=== PATIENT | female | born 1970 | race Caucasian/White ===

== ENCOUNTER 2021-08-14 15:03 | Inpatient (IN) | payer OTHER ==
[~2021-08-14] VITALS: Ht 165.1 cm; Wt 63.5 kg
[~2021-08-14 15:03] MED LIST: ADALAT CC60 MG PO; LASIX20 MG PO; LIPITOR20 MG PO; MOTRIN PO; PRILOSEC OTC20 MG PO; TOPROL XL50 M1 PO; TRADJENTA5 MG PO
[2021-08-16] MEDS ORDERED: IBUPROFEN800 MG PO (07:52)
== END 2021-08-20 14:41 | disposition home or self-care (01) | DRG 330 ==
LOC: O/R 08-16 05:50 → SURG 08-16 05:50 → SURH 08-16 07:00 → CIR.AMB 08-16 10:18 → EDSTATUS 08-16 11:02 → SURH 08-16 11:03 → SURG 08-16 13:37
PROVIDERS: ADMIT Colon & Rectal Surgery; ATTEND Colon & Rectal Surgery
PROC: 0DBP0ZZ Excision of Rectum, Open Approach (ICD-10-PCS; 2021-08-16)
PROC: 0DBU0ZZ Excision of Omentum, Open Approach (ICD-10-PCS; 2021-08-16)
PROC: 0DJD8ZZ Inspection of Lower Intestinal Tract, Via Natural or Artificial Opening Endoscopic (ICD-10-PCS; 2021-08-16)
PROC: 4A1BXSH Monitoring of Gastrointestinal Vascular Perfusion using Indocyanine Green Dye, External Approach (ICD-10-PCS; 2021-08-16)
PROC: 0DTN0ZZ Resection of Sigmoid Colon, Open Approach (ICD-10-PCS; principal; 2021-08-16 07:00)
DX: K57.32 Diverticulitis of large intestine without perforation or abscess without bleeding (principal); K59.39 Other megacolon; K56.51 Intestinal adhesions [bands], with partial obstruction; K56.690 Other partial intestinal obstruction; Z53.31 Laparoscopic surgical procedure converted to open procedure; Z20.822 Contact with and (suspected) exposure to COVID-19

== ENCOUNTER → 2022-10-15 | Day surgery (SDC) | payer OTHER ==
[~2022-10-15] MED LIST changes: +IBUPROFEN800 MG PO
== END | disposition home or self-care (01) ==
LOC: ADM 10-10 13:45 → AMB-ENDOS 07:46
PROVIDERS: ATTEND Colon & Rectal Surgery
DX: K57.32 Diverticulitis of large intestine without perforation or abscess without bleeding (principal); K57.30 Diverticulosis of large intestine without perforation or abscess without bleeding; K64.8 Other hemorrhoids; Z20.822 Contact with and (suspected) exposure to COVID-19

== ENCOUNTER 2022-10-30 05:53 | Day surgery (SDC) | payer OTHER ==
[~2022-10-30] VITALS: Ht 165.1 cm; Wt 61.7 kg
== END 2022-10-30 15:00 | disposition home or self-care (01) ==
LOC: CIR.AMB 05:53
PROVIDERS: ATTEND Orthopaedic Surgery
DX: M25.811 Other specified joint disorders, right shoulder (principal); M75.31 Calcific tendinitis of right shoulder; M24.111 Other articular cartilage disorders, right shoulder; M75.21 Bicipital tendinitis, right shoulder; M75.121 Complete rotator cuff tear or rupture of right shoulder, not specified as traumatic

== ENCOUNTER 2023-09-17 05:12 | Day surgery (SDC) | payer OTHER ==
[2023-09-11 09:19] LABS: HEMATOCRIT 36.1 % (36.0-45.00); MEAN CELL VOLUME 90.5 fL (80.00-100.00); MEAN CORPUSCULAR HEMOGLOBIN 30.1 pg (27.00-32.0); MEAN CORPUSCULAR HGB CONC 33.2 g/dl (32.0-36.0); PLATELET COUNT 206 K/uL (150-450); RED BLOOD COUNT 3.99 M/uL (4.00-6.00); RED CELL DISTRIBUTION WIDTH 13.7 % (11.5-14.5)
[2023-09-11 09:19] LABS: PH,URINE 5.5 (5.0-8.0); URINE APPEARANCE Clear; URINE BILIRRUBIN Negative (NEGATIVE); URINE BLOOD Small; URINE COLOR Yellow; URINE GLUCOSE Negative (NEGATIVE); URINE LEUKOCYTE Negative; URINE NITRATE Negative; URINE PROTEIN Negative (NEGATIVE)
[2023-09-11 09:21] LABS: URINE BACTERIA 91.9 uL (0.0-1933); URINE EPITHELIAL CELLS 25.8 uL (0.0-38.8); URINE RBC 29.3 uL (0.0-20.8); URINE WBC 9.2 uL (0.0-23.2)
[2023-09-11 09:58] LABS: ALBUMIN 3.8 gm/dL (3.4-5.0); BILIRUBIN TOTAL 0.51 mg/dL (0.3-1.2); CALCIUM 9.2 mg/dL (8.5-10.1); CREATININE SERUM 0.58 mg/dL (0.55-1.02); GFR 108.75; GLOBULINA 3.8 G/DL (2.4-3.5); POTASSIUM 3.86 mEq/L (3.5-5.1); TOTAL PROTEIN 7.6 gm/dL (6.4-8.2)
[2023-09-11 09:59] LABS: INR 0.98; PARTIAL THROMBOPLASTIN TIME 25.4 SECONDS (22.0-34.0); PROTHROMBIN TIME 10.3 SECONDS (9.0-11.5)
[~2023-09-17] VITALS: Ht 167.6 cm; Wt 64.4 kg
[~2023-09-17 05:12] MED LIST changes: +BACLOFEN10 MG PO; +MOTRIN IB200 MG PO; +PEPCID40 MG PO
[2023-09-17] MEDS ORDERED: CEFAZOLIN SODIUM 2,000 MG in 0.9 % SODIUM CHLORIDE 100 ML IV ONE (08:15)
[2023-09-17] MEDS ORDERED: BUPIVACAINE HCL 30 ML VIAL IJ ONE (08:15)
[2023-09-17] MEDS ORDERED: LIDOCAINE HCL 1%/EPINEPHRINE 20ML VIAL IJ ONE (08:15)
[2023-09-17] MEDS ORDERED: KETOROLAC TROMETHAMINE 30 MG VIAL IV ONE (08:15)
[2023-09-17] MEDS ORDERED: KETOROLAC TROMETHAMINE 30 MG VIAL IM ONE (08:30)
[2023-09-17] MEDS ORDERED: ISOPROPYL ALCOHOL 30 ML OUNCE TOP ONE (08:30)
== END 2023-09-17 10:55 | disposition home or self-care (01) ==
LOC: CIR.AMB 05:12
PROVIDERS: ATTEND Orthopaedic Surgery
DX: M75.42 Impingement syndrome of left shoulder (principal); M75.112 Incomplete rotator cuff tear or rupture of left shoulder, not specified as traumatic; M75.22 Bicipital tendinitis, left shoulder; M24.112 Other articular cartilage disorders, left shoulder; J45.909 Unspecified asthma, uncomplicated; I10 Essential (primary) hypertension; G47.33 Obstructive sleep apnea (adult) (pediatric); E11.9 Type 2 diabetes mellitus without complications

== ENCOUNTER 2023-12-23 07:44 | Day surgery (SDC) | payer OTHER ==
[2023-12-23] MEDS ORDERED: DIPHENHYDRAMINE HCL 50 MG/ML VIAL 1ML IV ONE (12:15)
[2023-12-23] MEDS ORDERED: ONDANSETRON HCL 2 MG/ML VIAL IV ONE (12:15)
[2023-12-23] MEDS ORDERED: fentaNYL CITRATE 50 MCG/ML AMPUL IV PUSH ONE (12:15)
[2023-12-23] MEDS ORDERED: MIDAZOLAM HCL 2 MG/2 ML VIAL IV ONE (12:15)
== END 2023-12-23 13:50 | disposition home or self-care (01) ==
LOC: AMB-ENDOS 07:44
PROVIDERS: ATTEND Colon & Rectal Surgery
DX: K57.32 Diverticulitis of large intestine without perforation or abscess without bleeding (principal); D12.5 Benign neoplasm of sigmoid colon; K63.89 Other specified diseases of intestine